=== PATIENT | female | born 1995 | race Caucasian/White ===

== ENCOUNTER 2022-01-19 10:49 | Outpatient (CLI) | payer OTHER | END 2022-01-19 11:46 | disposition home or self-care (01) | LOC: NST 10:49 | PROVIDERS: ATTEND Obstetrics & Gynecology | DX: Z34.83 Encounter for supervision of other normal pregnancy, third trimester (principal) ==

== ENCOUNTER 2022-02-02 11:34 | Outpatient (CLI) | payer OTHER | END 2022-02-02 13:00 | disposition home or self-care (01) | LOC: NST 11:34 | PROVIDERS: ATTEND Obstetrics & Gynecology | DX: Z34.83 Encounter for supervision of other normal pregnancy, third trimester (principal) ==

== ENCOUNTER 2022-03-04 07:30 | Inpatient (IN) | payer OTHER ==
[~2022-03-04] VITALS: Ht 160 cm; Wt 3.6 kg
[2022-03-15] MEDS ORDERED: PRENATAL TABLE1 EAC1 PO (15:21)
== END 2022-03-19 15:52 | disposition home or self-care (01) | DRG 788 ==
LOC: LDR 03-15 12:47 → OB/GYN 03-16 07:30 → O/R 03-16 14:29 → OB/GYN 03-16 14:30 → SURG-SUITE 03-16 15:30
PROVIDERS: ADMIT Obstetrics & Gynecology; ATTEND Obstetrics & Gynecology
PROC: 4A1HXCZ Monitoring of Products of Conception, Cardiac Rate, External Approach (ICD-10-PCS; 2022-03-15)
PROC: 3E033VJ Introduction of Other Hormone into Peripheral Vein, Percutaneous Approach (ICD-10-PCS; 2022-03-16)
PROC: 3E0P7VZ Introduction of Hormone into Female Reproductive, Via Natural or Artificial Opening (ICD-10-PCS; 2022-03-16)
PROC: 10D00Z1 Extraction of Products of Conception, Low, Open Approach (ICD-10-PCS; principal; 2022-03-16 12:05)
DX: O61.0 Failed medical induction of labor (principal); O36.63X0 Maternal care for excessive fetal growth, third trimester, not applicable or unspecified; Z3A.39 39 weeks gestation of pregnancy; Z37.0 Single live birth; Z20.822 Contact with and (suspected) exposure to COVID-19

== ENCOUNTER → 2022-03-09 | Outpatient (CLI) | payer OTHER ==
[~2022-03-09] VITALS: Ht 160 cm; Wt 88.5 kg
[~2022-03-09] MED LIST: PRENATAL TABLE1 EAC1 PO
== END | disposition home or self-care (01) ==
LOC: NST 19:35
PROVIDERS: ATTEND Obstetrics & Gynecology
DX: Z34.83 Encounter for supervision of other normal pregnancy, third trimester (principal)

== ENCOUNTER 2023-09-14 08:32 | Outpatient (CLI) | payer OTHER | END 2023-09-14 11:40 | disposition home or self-care (01) | LOC: NST 08:32 | PROVIDERS: ATTEND Obstetrics & Gynecology Maternal & Fetal Medicine | DX: Z34.83 Encounter for supervision of other normal pregnancy, third trimester (principal) ==

== ENCOUNTER 2023-10-12 13:12 | Outpatient (CLI) | payer OTHER | END 2023-10-12 13:57 | disposition home or self-care (01) | LOC: NST 13:12 | PROVIDERS: ATTEND Obstetrics & Gynecology Maternal & Fetal Medicine | DX: Z34.83 Encounter for supervision of other normal pregnancy, third trimester (principal) ==

== ENCOUNTER 2023-10-26 09:17 | Outpatient (CLI) | payer OTHER | END 2023-10-26 10:33 | disposition home or self-care (01) | LOC: NST 09:17 | PROVIDERS: ATTEND Obstetrics & Gynecology Maternal & Fetal Medicine | DX: Z34.83 Encounter for supervision of other normal pregnancy, third trimester (principal) ==